=== PATIENT | male | born 1980 | race Two or more races ===

== ENCOUNTER 2021-03-23 18:57 | Emergency (ER) | payer OTHER ==
[~2021-03-23] VITALS: Ht 175.3 cm; Wt 85.0 kg
[2021-03-23 19:57] VITALS: BP 114/81
--- NOTE | 2021-03-23 20:10 | NUR ---
SEEN BY ERP, SAFETY MEASURES IN PLACE. PT TO SOBER UP AND RECHECK IN AN HOUR. PT STILL DENING SI/HI AT THIS TIME
--- NOTE | 2021-03-23 20:22 | NUR ---
PT PROVIDED SNACKS AND WATER AT THIS TIME. OK PER ERP
== END 2021-03-23 21:54 | disposition home or self-care (01) ==
LOC: ED 21:30
DX: F10.120 Alcohol abuse with intoxication, uncomplicated (principal); Z72.9 Problem related to lifestyle, unspecified; Y90.0 Blood alcohol level of less than 20 mg/100 ml
CPT/HCPCS: 99283